=== PATIENT | male | born 1970 | race Caucasian/White ===

== ENCOUNTER → 2023-08-25 13:43 | Outpatient (REF) | payer OTHER, SELFPAY | LOC: HWRAD 13:43 | PROVIDERS: ATTENDING PHYSICIAN Physician Assistant Medical | DX: R10.31 Right lower quadrant pain (principal); N50.811 Right testicular pain | CPT/HCPCS: 76870; 76882; 93976 ==

== ENCOUNTER → 2024-03-17 09:16 | Outpatient (REF) | payer OTHER, SELFPAY | LOC: RAD 09:16 | PROVIDERS: ATTENDING PHYSICIAN Family Medicine | DX: M79.643 Pain in unspecified hand (principal) | CPT/HCPCS: 73130 ==

== ENCOUNTER 2024-08-09 06:25 | Day surgery (SDC) | payer OTHER, SELFPAY | END 2024-08-09 08:32 | disposition home or self-care (01) | LOC: GI 06:25 | PROVIDERS: ATTENDING PHYSICIAN Internal Medicine | DX: Z12.11 Encounter for screening for malignant neoplasm of colon (principal); D12.3 Benign neoplasm of transverse colon; K63.5 Polyp of colon; Z80.0 Family history of malignant neoplasm of digestive organs; Z86.0101 Personal history of adenomatous and serrated colon polyps | CPT/HCPCS: 45385; 88305 ==

== ENCOUNTER 2025-03-22 06:11 | Day surgery (SDC) | payer OTHER, SELFPAY ==
[2025-03-22] VITALS (13 sets, daily range): BP systolic 107–120; BP diastolic 62–75; BMI 27.5
[2025-03-22] MEDS: TYLENOL 1000 MG PO (07:25)
[2025-03-22] MEDS: DILAUDID 0.25 MG IV ×2 (10:15→10:29)
== END 2025-03-22 11:45 | disposition home or self-care (01) ==
LOC: SDS 06:11
PROVIDERS: ATTENDING PHYSICIAN Otolaryngology
DX: H90.42 Sensorineural hearing loss, unilateral, left ear, with unrestricted hearing on the contralateral side (principal)
CPT/HCPCS: 69719; L8690; L8614